=== PATIENT | male | born 1995 ===

== ENCOUNTER 2019-03-12 12:06 | Emergency (ER) | payer OTHER ==
--- NOTE | 2019-03-12 14:02 | ED ---
Complex/Multi-Sys Presentation - HPI Summary HPI Summary: This patient is a 23 year old M presenting to [facility] accompanied by correctional officers with a chief complaint of pain in right wrist and penile swelling. Pt reports it feels similar to when he previously broke his wrist. Pt reports he punched a locker at 1700 on 03/12/19, after he felt disregarded by a nurse, who did not take his complaint seriously. He reports he went to nurse for a painful ingrown hair, which ended up causing painful penile swelling. The nurse gave him antibiotics, the swelling went down and pus came out. - History Of Current Complaint Chief Complaint: EDUrogenitalProblems Time Seen by Provider: 03/12/19 13:54 Hx Obtained From: Patient Onset/Duration: Sudden Onset, Gradual Onset, Lasting Days, Still Present Timing: Constant, Hours, Days Severity Currently: Severe - 9/10 Severity Initially: Severe Location: Pain At: - right wrist, penis Alleviating Factor(s): Antibiotics Associated Signs And Symptoms: Positive: Other - pos - penile swelling, pus - Allergies/Home Medications Allergies/Adverse Reactions: Allergies Allergy/AdvReac Type Severity Reaction Status Date / Time amoxicillin Allergy Swelling Verified 03/12/19 12:15 Penicillins Allergy Swelling Verified 03/12/19 12:15 PMH/Surg Hx/FS Hx/Imm Hx Sensory History: Denies: Hx Legally Blind Opthamlomology History: Denies: Hx Legally Blind EENT History: Denies: Hx Deafness - Surgical History Surgical History: None Surgery Procedure, Year, and Place: Shoulder Surgery, Broken Jaw Infectious Disease History: No Infectious Disease History: Denies: Traveled Outside the [place] in Last 30 Days - Family History Known Family History: Positive: Other - Cancer - Social History Occupation: Unemployed Alcohol Use: None Substance Use Type: Reports: None Smoking Status (MU): Unknown if Ever Smoked Review of Systems Genitourinary: Other - pos - penil swelling Positive: Other - pos - pain in right arm All Other Systems Reviewed And Are Negative: Yes Physical Exam - Summary Physical Exam Summary: Appearance: The patient is well-nourished in no acute distress and in no acute pain. Skin: The skin is warm and dry and skin color reflects adequate perfusion. HEENT: The head is normocephalic and atraumatic. The pupils are equal and reactive. The conjunctivae are clear and without drainage. Nares are patent and without drainage. Mouth reveals moist mucous membranes and the throat is without erythema and exudate. The external ears are intact. The ear canals are patent and without drainage. The tympanic membranes are intact. Neck: The neck is supple with full range of motion and non-tender. There are no carotid bruits. There is no neck vein distension. Respiratory: Chest is non-tender. Lungs are clear to auscultation and breath sounds are symmetrical and equal. Cardiovascular: Heart is regular rate and rhythm. There is no murmur or rub auscultated. There is no peripheral edema and pulses are symmetrical and equal. Abdomen: The abdomen is soft and non-tender. There are normal bowel sounds heard in all four quadrants and there is no organomegaly palpated. Musculoskeletal: There is no back tenderness noted. There is good capillary refill. There is no peripheral edema or calf tenderness elicited. Tenderness to his fourth and fifth metacarpals of right hand Neurological: Patient is alert and oriented to person, place and time. The patient has symmetrical motor strength in all four extremities. Cranial nerves are grossly intact. Deep tendon reflexes are symmetrical and equal in all four extremities. Psychiatric: The patient has an appropriate affect and does not exhibit any anxiety or depression : Penis swollen at the base, erythematous, tender, and spontaneously draining , no lymphadenopathy Triage Information Reviewed: Yes Vital Signs On Initial Exam: Initial Vitals Temp Pulse Resp BP Pulse Ox 97.1 F 97 18 141/82 97 03/12/19 12:10 03/12/19 12:10 03/12/19 12:10 03/12/19 12:10 03/12/19 12:10 Vital Signs Reviewed: Yes Diagnostics - Vital Signs Vital Signs Temp Pulse Resp BP Pulse Ox 03/12/19 12:10 97.1 F 97 18 141/82 97 - Laboratory Lab Statement: Any lab studies that have been ordered have been reviewed, and results considered in the medical decision making process. - Radiology Hand X-Ray Radiology Interpretation Completed By: Radiologist Summary of Radiographic Findings: Hand X-Ray: REPORT AND IMPRESSION: #. Distal metaphyseal fractures of the fourth and fifth metacarpals with up to 45 degrees apex dorsal angulation at the fifth and 30 degrees apex dorsal angulation at the fourth. #. Negative for dislocation. #. Overlying soft tissue swelling. Complex Multi-Symp Course/Dx Course Of Treatment: Mr. Barnes presented nontoxic with stable vital signs. He was found to have a boxer's fracture's of his fourth and fifth metacarpals. He sustained him punching a locker because he felt he was being ignored for his penile pain. He says he started with an ingrown hair and then it got worse. He gets started on antibiotics and is bit better now. On exam he had diffuse shaft swelling on the dorsum with tenderness and induration. It was draining spontaneously. He is given Keflex a gram twice a day and I think this is working he's only had 2 days and his had significant improvement. He was placed in a splint and will need a cast at some point for his hand possible reduction. - Diagnoses Provider Diagnoses: Boxers fracture Discharge - Sign-Out/Discharge Documenting (check all that apply): Patient Departure - Discharge Patient Received Moderate/Deep Sedation with Procedure: No - Discharge Plan Condition: Stable Disposition: HOME Patient Education Materials: Boxer Fracture (ED) Referrals: No Primary Care Phys,NOPCP [Primary Care Provider] - Additional Instructions: Continue using Keflex. Follow up with orthopedics within 2-3 days. - Billing Disposition and Condition Condition: STABLE Disposition: Home - Attestation Statements Document Initiated by Scribe: Yes Documenting Scribe: Audelia Campbell Provider For Whom Kalpana is Documenting (Include Credential): Dr. Mustapha Mohan MD Scribe Attestation: Audelia Saul scribed for Dr. Mustapha Mohan MD on 03/12/19 at 2018. Scribe Documentation Reviewed: Yes Provider Attestation: The documentation as recorded by the Audelia zhang accurately reflects the service I personally performed and the decisions made by me, Dr. Mustapha Mohan MD Status of Scribe Document: Viewed
--- NOTE | 2019-03-12 14:47 | ED ---
Complaint/Male - History of Current Complaint Chief Complaint: EDUrogenitalProblems Time Seen by Provider: 03/12/19 13:54 - Allergies/Home Medications Allergies/Adverse Reactions: Allergies Allergy/AdvReac Type Severity Reaction Status Date / Time amoxicillin Allergy Swelling Verified 03/12/19 12:15 Penicillins Allergy Swelling Verified 03/12/19 12:15 PMH/Surg Hx/FS Hx/Imm Hx Infectious Disease History: No Infectious Disease History: Denies: Traveled Outside the [place] in Last 30 Days Physical Exam Vital Signs On Initial Exam: Initial Vitals Temp Pulse Resp BP Pulse Ox 97.1 F 97 18 141/82 97 03/12/19 12:10 03/12/19 12:10 03/12/19 12:10 03/12/19 12:10 03/12/19 12:10 Diagnostics - Vital Signs Vital Signs Temp Pulse Resp BP Pulse Ox 03/12/19 12:10 97.1 F 97 18 141/82 97 - Laboratory Lab Statement: Any lab studies that have been ordered have been reviewed, and results considered in the medical decision making process.
[2019-03-12 15:23] VITALS: BP 138/72
== END 2019-03-12 15:23 | disposition home or self-care (01) ==
LOC: ED 12:06
DX: S62.304A Unspecified fracture of fourth metacarpal bone, right hand, initial encounter for closed fracture (principal); S62.306A Unspecified fracture of fifth metacarpal bone, right hand, initial encounter for closed fracture; W22.09XA Striking against other stationary object, initial encounter; Y92.149 Unspecified place in prison as the place of occurrence of the external cause; Z88.1 Allergy status to other antibiotic agents; Z88.0 Allergy status to penicillin
CPT/HCPCS: 99282